=== PATIENT | female | born 1935 | race Caucasian/White ===

== ENCOUNTER 2016-10-02 20:32 | Observation (INO) | payer OTHER ==
[~2016-10-02] VITALS: Ht 149.9 cm; Wt 47.1 kg
[~2016-10-02 20:32] MED LIST: ASPIR 8181 M1 PO; ASPIR-TRIN325 M1 PO; CARDIZEM CD180 MG PO; DEPAKOTE250 MG PO; DIAZEPAM2 MG PO; ENABLEX15 MG; ESCITALOPRAM OX10 MG PO; LIDODERM 5% P1 PATCH PO; LISINOPRIL20 MG PO; LO-DOSE ASPIRIN81 M1 PO; LOPRESSOR25 MG PO; MESTINON60 MG PO; METOPROLOL TART50 MG PO; NORVASC5 MG PO; PRAVASTATIN SOD40 MG PO; PRILOSEC20 MG PO; Tylenol Regular Stre PO
[2016-10-02 21:48] LABS: HEMATOCRIT 36.8 % (36.0-46.0); MCH 31.8 PG (29.0-34.0); MCHC 34.2 G/DL (30.0-36.0); MCV 92.9 FL (83-99); PLATELET COUNT 159 K/uL (156-360); RBC DIS.WIDTH-CV 11.9 % (11.8-14.6); RED BLOOD COUNT 3.96 M/uL (3.80-5.20); WHITE BLOOD COUNT 11.1 K/uL (4.1-10.2)
[2016-10-02 22:03] LABS: CHLORIDE 104 mEq/L (99-109); POTASSIUM 4.4 mEq/L (3.7-5.4); SODIUM 140 mEq/L (136-147)
[2016-10-02 22:05] LABS: GLUCOSE 101 mg/dL (70-99)
[2016-10-02 22:06] LABS: ANION GAP 12 MEQ/L (2-14)
[2016-10-02 22:08] LABS: GFR ESTIMATE (CALCULATED) 42 mL/min/
[2016-10-02 22:09] LABS: UREA NITROGEN (BUN) 23 mg/dL (9-23)
[2016-10-02 22:11] LABS: TROP-I INTERPRETATION NEGATIVE; TROPONIN-I < 0.01 ng/mL (0.0-0.30)
[2016-10-03 02:10] VITALS: BP 178/80
[2016-10-03 03:02] LABS: ALKALINE PHOSPHATASE 75 IU/L (3-129); HDL CHOLESTEROL 69 MG/DL (Desirable>=50); LDL CHOLESTEROL 48 mg/dL (Desirable<100); NON-HDL CHOLESTEROL 67 mg/dL (Desirable<160); TOTAL BILIRUBIN 0.3 MG/DL (0.0-1.0); TOTAL CHOLESTEROL 136 mg/dL (Desirable<200); TRIGLYCERIDES 97 MG/DL (Normal: <150)
[2016-10-03 04:16] LABS: HEMATOCRIT 33.1 % (36.0-46.0); MCH 31.5 PG (29.0-34.0); MCHC 33.8 G/DL (30.0-36.0); MEAN PLAT.VOLUME 11.8 uM^3 (9.5-12.4); PLATELET COUNT 134 K/uL (156-360); RBC DIS.WIDTH-CV 11.9 % (11.8-14.6); RBC DIS.WIDTH-SD 40.9 % (39-53); RED BLOOD COUNT 3.56 M/uL (3.80-5.20); WHITE BLOOD COUNT 6.7 K/uL (4.1-10.2)
[2016-10-03 04:28] LABS: CHLORIDE 105 mEq/L (99-109); POTASSIUM 3.6 mEq/L (3.7-5.4); SODIUM 139 mEq/L (136-147)
[2016-10-03 04:29] LABS: GLUCOSE 97 mg/dL (70-99)
[2016-10-03 04:31] LABS: ANION GAP 8 MEQ/L (2-14)
[2016-10-03 04:33] LABS: GFR ESTIMATE (CALCULATED) 57 mL/min/
[2016-10-03 04:34] LABS: UREA NITROGEN (BUN) 18 mg/dL (9-23)
[2016-10-03 04:37] LABS: TROP-I INTERPRETATION NEGATIVE; TROPONIN-I < 0.01 ng/mL (0.0-0.30)
[2016-10-03 07:17] LABS: Estimated Average Glucose 108 mg/dL (70-123); HEMOGLOBIN A1c (GLYCOHEMOGLOB) 5.4 % HGB (Below 5.7)
[2016-10-03 08:35] VITALS: BP 178/80
[2016-10-03 10:39] LABS: TROP-I INTERPRETATION NEGATIVE; TROPONIN-I 0.01 ng/mL (0.0-0.30)
[2016-10-03 12:12] VITALS: BP 195/96
[2016-10-03 16:00] VITALS: BP 187/97
[2016-10-03 20:13] VITALS: BP 149/73
[2016-10-03 21:50] LABS: ADD MIUA? YES; BILIRUBIN NEGATIVE; BLOOD NEGATIVE; COLOR YELLOW ((YELLOW)); GLUCOSE (STRIP) NEGATIVE; KETONES NEGATIVE; LEUKOCYTES TRACE; NITRITE NEGATIVE; PROTEIN (STRIP) NEGATIVE; SPECIFIC GRAVITY 1.009 (1.000-1.030); UROBILINOGEN 0.2 MG/DL (0.2-1.0)
[2016-10-03 22:59] LABS: BACTERIA NONE SEEN /HPF; EPITHELIAL CELLS RARE /HPF; MUCUS TRACE /LPF; RED BLOOD CELLS 20-30 /HPF (0-5); UCUL ADDED? NO; WHITE BLOOD CELLS 0-5 /HPF (0-5)
[2016-10-04 00:55] VITALS: BP 125/60
[2016-10-04 03:50] VITALS: BP 127/83
[2016-10-04 07:05] VITALS: BP 169/80
[2016-10-04 11:52] VITALS: BP 159/70
== END 2016-10-04 14:13 | disposition home or self-care (01) ==
LOC: EME 20:32 → EDOF 10-03 00:40 → 5WEST 10-03 00:40
PROVIDERS: Emergency Medicine; Hospitalist; Psychiatry & Neurology Neurology
DX: R51 Headache (principal); R07.9 Chest pain, unspecified; R42 Dizziness and giddiness; I10 Essential (primary) hypertension; K21.9 Gastro-esophageal reflux disease without esophagitis; Z86.73 Personal history of transient ischemic attack (TIA), and cerebral infarction without residual deficits; Z98.2 Presence of cerebrospinal fluid drainage device; Z87.891 Personal history of nicotine dependence; J44.9 Chronic obstructive pulmonary disease, unspecified
CPT/HCPCS: 70450; 71010; 74000; 80048; 80061; 80076; 81003; 83036; 84443; 84484; 85027; 85651; 86141; 93005; 99281; 99284; G0378; G8978 GP CM; G8979 GP CK; J1644

== ENCOUNTER 2017-09-09 12:29 | Emergency (ER) | payer OTHER ==
[~2017-09-09] VITALS: Ht 149.9 cm; Wt 45.0 kg
[2017-09-09 12:32] VITALS: BP 133/110
== END 2017-09-09 15:34 | disposition left against medical advice (07) ==
LOC: EME 12:29
DX: R39.198 Other difficulties with micturition (principal); Z53.21 Procedure and treatment not carried out due to patient leaving prior to being seen by health care provider
CPT/HCPCS: 81003